=== PATIENT | male | born 1990 | race Caucasian/White ===

== ENCOUNTER 2021-01-08 14:23 | Emergency (ER) | payer OTHER ==
[~2021-01-08] VITALS: Ht 185.4 cm; Wt 77.1 kg
[2021-01-08 14:44] LABS: ABSOLUTE LYMPHOCYTES 2.9 thou/uL (0.8-5.3); ABSOLUTE MONOCYTES 0.6 thou/uL (0.0-1.2); ABSOLUTE NEUTROPHILS 1.8 thou/uL (1.6-8.1); BASOPHILS 0.7 %; HEMATOCRIT 42.5 % (42.0-52.0); HEMOGLOBIN 14.7 gm/dL (14.0-18.0); LYMPHOCYTES 54.3 %; MCH 32.9 pg (26.0-34.0); MCHC 34.6 g/dL (28.0-37.0); MONOCYTES 10.9 %; MPV 7.9 fl. (7.2-11.1); NUCLEATED RBCS 0 /100WBC; PLATELET COUNT* 237 thou/uL (150-400); POLYS 34.1 %; RBC 4.48 mil/uL (4.50-6.00); RDW-CV 12.5 % (10.5-14.5); WBC 5.4 thou/uL (4.0-11.0)
[2021-01-08 14:52] LABS: CREATININE 1.2 mg/dL (0.6-1.3); POTASSIUM 3.4 mmol/L (3.5-5.1)
[2021-01-08 14:57] LABS: ALBUMIN 4.7 g/dL (3.4-5.0); TOTAL BILIRUBIN 0.6 mg/dL (<0.1-1.0); TOTAL PROTEIN 7.9 g/dL (6.4-8.2)
--- NOTE | 2021-01-08 15:42 | EKG ---
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: [facility] : 1990 Requested By: Shabbir Sal Order Number: [id number] MD: Juanjo Perry Measurements Intervals [place] Rate: 97 P: 67 [place]: 191 QRS: 42 QRSD: 128 T: 60 QT: 376 QTc: 478 Interpretive Statements Sinus rhythm IVCD, consider atypical RBBB ST elev, probable normal early repol pattern Baseline wander in lead(s) II,V1 No previous ECG available for comparison Electronically Signed On 01-08-2021 15:42:20 CDT by Juanjo Perry [email or web address] <ELECTRONICALLY SIGNED> By: Juanjo Perry MD, [facility] 01/08/21 1542 142 142 Juanjo Perry MD, [facility] /EPI
[2021-01-08 16:02] VITALS: BP 151/70
== END 2021-01-08 16:02 | disposition home or self-care (01) ==
LOC: M.ERS 14:23
PROVIDERS: Physician Assistant
DX: R00.2 Palpitations (principal)